=== PATIENT | male | born 2000 | race Two or more races ===

== ENCOUNTER 2022-04-07 13:49 | Emergency (ER) | payer MEDICAID ==
[~2022-04-07] VITALS: Ht 165.1 cm; Wt 79.6 kg
[2022-04-07 14:02] VITALS: BP 131/80
[2022-04-07] MEDS ORDERED: IBUP800T27 PO (20:29)
== END 2022-04-07 20:48 | disposition home or self-care (01) ==
LOC: ER 13:49
DX: M54.50 Low back pain, unspecified (principal)
CPT/HCPCS: 72100